=== PATIENT | male | born 1960 | race Caucasian/White ===

== ENCOUNTER 2021-04-02 19:33 | Emergency (ER) | payer SELFPAY ==
[~2021-04-02 19:33] MED LIST: FLOMAX 0.4 MG0.4 MG PO; MOBIC7.5 MG PO; PERCOCET 5-3251 EACH PO; SYMBICORT 80-10.2 GM INH; ZOFRAN4 MG SL
== END 2021-04-02 21:21 | disposition home or self-care (01) ==
LOC: FER 19:33
DX: S61.012A Laceration without foreign body of left thumb without damage to nail, initial encounter (principal); F17.210 Nicotine dependence, cigarettes, uncomplicated; I10 Essential (primary) hypertension; J44.9 Chronic obstructive pulmonary disease, unspecified; W26.0XXA Contact with knife, initial encounter; Y92.009 Unspecified place in unspecified non-institutional (private) residence as the place of occurrence of the external cause
CPT/HCPCS: 99282

== ENCOUNTER 2022-04-29 23:01 | Emergency (ER) | payer OTHER ==
[2022-04-29 23:20] LABS: BASOPHIL 0.5 % (0-2); EOSINOPHIL 5.3 % (0-5); HCT 48.7 % (42.0-52.0); HGB 16.1 g/dl (13.2-18.0); LYMPHOCYTE 28.6 % (15-48); MCH 30.1 pg (25.0-31.0); MCHC 33.1 g/dL (32.0-36.0); MONOCYTE 10.5 % (0-12); NEUTROPHIL 54.9 % (41-80); NRBC 0; PLT 199 K/uL (150-400); RBC 5.35 M/uL (4.70-6.00); WBC 6.4 K/uL (4.0-10.5)
[2022-04-29 23:39] LABS: ALBUMIN 3.7 g/dL (3.4-5.0); BILIRUBIN - TOTAL 0.3 mg/dL (0.2-1.0); BUN/CREAT RATIO (CALC) 18.7 RATIO; CREATININE 0.75 mg/dL (0.67-1.17); GLOBULIN (CALCULATION) 3.4 g/dL; POTASSIUM 4.5 mmol/L (3.5-5.1); TOTAL PROTEIN 7.1 g/dL (6.4-8.2)
[2022-04-30 01:43] LABS: BILIRUBIN NEGATIVE (NEGATIVE); BLOOD 2+ Ery/uL (NEGATIVE); CLARITY CLEAR (CLEAR); COLOR YELLOW (YELLOW); GLUCOSE (U) NORMAL (NORMAL); LEUKOCYTES NEGATIVE Leu/uL (NEGATIVE); NITRITE NEGATIVE (NEGATIVE); PROTEIN NEGATIVE (NEGATIVE); SPECIFIC GRAVITY >=1.030 (1.001-1.030); UROBILINOGEN 0.2 mg/dL (0.2-1.0)
[2022-04-30 02:01] LABS: URINARY WBC RARE
[2022-04-30 02:02] LABS: BACTERIA TRACE; CALCIUM OXALATE CRYSTALS TRACE; SQUAMOUS EPITHELIAL CELLS RARE
[2022-04-30] MEDS ORDERED: NORCO 5-325 TA1 EACH PO (02:11)
[2022-04-30] MEDS ORDERED: FLOMAX0.4 MG PO (02:11)
[2022-04-30] MEDS ORDERED: ONDANSETRON ODT4 MG PO (02:11)
== END 2022-04-30 02:55 | disposition home or self-care (01) ==
LOC: FER 23:01
PROVIDERS: Emergency Medicine
DX: N13.2 Hydronephrosis with renal and ureteral calculous obstruction (principal); J44.9 Chronic obstructive pulmonary disease, unspecified; F17.200 Nicotine dependence, unspecified, uncomplicated
CPT/HCPCS: 36415; 80053; 81001; 85025; J1170; J1885; J2405; J7030

== ENCOUNTER 2022-06-28 22:54 | Emergency (ER) | payer OTHER ==
[~2022-06-28 22:54] MED LIST changes: +FLOMAX0.4 MG PO; +NORCO 5-325 TA1 EACH PO; +ONDANSETRON ODT4 MG PO
[2022-06-28 23:35] LABS: BASOPHIL 0.7 % (0-2); EOSINOPHIL 3.4 % (0-5); HCT 40.4 % (42.0-52.0); HGB 13.5 g/dl (13.2-18.0); LYMPHOCYTE 23.4 % (15-48); MCH 30.3 pg (25.0-31.0); MCHC 33.4 g/dL (32.0-36.0); MCV 90.6 fL (78.0-100.0); NEUTROPHIL 61.3 % (41-80); NRBC 0; PLT 198 K/uL (150-400); RBC 4.46 M/uL (4.70-6.00); RDW 12.2 % (11.5-14.0); WBC 5.8 K/uL (4.0-10.5)
[2022-06-28 23:52] LABS: BUN/CREAT RATIO (CALC) 19.2 RATIO; CREATININE 0.99 mg/dL (0.67-1.17); POTASSIUM 3.5 mmol/L (3.5-5.1)
[2022-06-29 01:09] LABS: BILIRUBIN NEGATIVE (NEGATIVE); BLOOD 3+ Ery/uL (NEGATIVE); CLARITY CLEAR (CLEAR); COLOR YELLOW (YELLOW); GLUCOSE (U) NORMAL (NORMAL); LEUKOCYTES NEGATIVE Leu/uL (NEGATIVE); NITRITE NEGATIVE (NEGATIVE); PROTEIN NEGATIVE (NEGATIVE); SPECIFIC GRAVITY 1.025 (1.001-1.030); UROBILINOGEN 0.2 mg/dL (0.2-1.0)
[2022-06-29 01:18] LABS: URINARY RBC 20-50
[2022-06-29 01:19] LABS: BACTERIA TRACE; SQUAMOUS EPITHELIAL CELLS RARE; URINARY WBC RARE
[2022-06-29] MEDS ORDERED: NORCO 5-325 TA1 EACH PO (01:48)
[2022-06-29] MEDS ORDERED: FLOMAX0.4 MG PO (01:48)
== END 2022-06-29 02:02 | disposition home or self-care (01) ==
LOC: FER 22:54
PROVIDERS: Emergency Medicine
DX: N20.0 Calculus of kidney (principal); I10 Essential (primary) hypertension; J44.9 Chronic obstructive pulmonary disease, unspecified; F17.200 Nicotine dependence, unspecified, uncomplicated
CPT/HCPCS: 36415; 80048; 81001; 85025